=== PATIENT | male | born 1985 | race Caucasian/White ===

== ENCOUNTER 2017-05-08 08:23 | Emergency (ER) | payer OTHER ==
[~2017-05-08] VITALS: Ht 167.6 cm; Wt 100.0 kg
[~2017-05-08 08:23] MED LIST: HYDR25TA PO; INDO25 PO; METF500T4 PO; SITA50 PO
[2017-05-08] MEDS ORDERED: INDOMETHACIN 25 MG CAPSULE PO ONE (11:00)
[2017-05-08 11:36] VITALS: BP 131/80
== END 2017-05-08 11:56 | disposition home or self-care (01) ==
LOC: EMS 08:25
DX: Z76.0 Encounter for issue of repeat prescription (principal); M10.9 Gout, unspecified; E11.9 Type 2 diabetes mellitus without complications
CPT/HCPCS: 99283

== ENCOUNTER 2017-09-07 17:11 | Emergency (ER) | payer OTHER ==
[~2017-09-07] VITALS: Ht 170.2 cm; Wt 100.0 kg
[~2017-09-07 17:11] MED LIST changes: -HYDR25TA PO; -METF500T4 PO; -SITA50 PO
[2017-09-07] MEDS ORDERED: GABA-533 PO (17:25)
[2017-09-07] MEDS ORDERED: METF500T4 PO (17:25)
[2017-09-07 17:28] LABS: GLUCOSE,POINT OF CARE 333 MG/DL (70-110)
[2017-09-07 17:55] VITALS: BP 146/95
== END 2017-09-07 18:27 | disposition home or self-care (01) ==
LOC: EMS 17:12
DX: M10.9 Gout, unspecified (principal); E11.9 Type 2 diabetes mellitus without complications; M79.645 Pain in left finger(s); M79.671 Pain in right foot; Z76.0 Encounter for issue of repeat prescription
CPT/HCPCS: 82962; 99283

== ENCOUNTER 2017-12-25 12:34 | Emergency (ER) | payer OTHER ==
[~2017-12-25] VITALS: Ht 172.7 cm; Wt 86.4 kg
[~2017-12-25 12:34] MED LIST changes: +GABA-533 PO; +METF500T6 PO
[2017-12-25 13:30] VITALS: BP 133/86
== END 2017-12-25 13:37 | disposition home or self-care (01) ==
LOC: EMS 12:36
DX: M10.9 Gout, unspecified (principal); R03.0 Elevated blood-pressure reading, without diagnosis of hypertension; M79.641 Pain in right hand; E11.9 Type 2 diabetes mellitus without complications; Z79.84 Long term (current) use of oral hypoglycemic drugs
CPT/HCPCS: 99283